=== PATIENT | female | born 1970 | race Caucasian/White ===

== ENCOUNTER 2016-11-19 06:14 | Inpatient (IN) | payer MEDICARE ==
--- NOTE | ~2016-11-19 | HP ---
Unit #: [id number] #: [id number] Patient: CRISTIANA ROBBINS [id number] [address] [address] [id number] I MR#: [id number] NAME: CRISTIANA ROBBINS ROOM: 239 Age: 45 Sex: F Admission Date: 11/19/2016 : 1970 Attending Physician: Edy Lester M.D. Referring Physician: Edy Lester M.D. 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 She failed extensive attempts at rehabilitation and medical management. She is no longer a surgical candidate. Plan is to trial spinal narcotics with a view toward possible pump placement. ALLERGIES Morphine, acetaminophen, Dilantin, ketorolac, Keppra and Cymbalta. PAST MEDICAL HISTORY Medical history is significant for chronic pain status post spine surgery, seizures, anxiety, hypertension. TREATMENT PLAN The patient has been placed in observation with possible transference to an admission following placement of an epidural catheter and the beginning of an infusion of Dilaudid via epidural catheter. Plan will be to assess the patient over the ensuing hours and days to determine whether or not the spinal narcotics are adequate treatment for her. Dictated by Cristina Ritter/evelin TD: 11/21/2016 09:19 JOB #: [id number] HISTORY AND PHYSICAL Page 1 of 1 X Edy Lester MD X HISTORY AND PHYSICAL
--- NOTE | ~2016-11-19 | OR ---
Unit #: [id number] #: [id number] Patient: CRISTIANA ROBBINS [id number] [address] [place], [place] [address] [id number] I MR#: [id number] NAME: CRISTIANA ROBBINS ROOM: 239 Date of Procedure: 11/19/2016 Admission Date: 11/19/2016 Surgeon: Edy Lester M.D. : 1970 Attending Physician: Edy Lester M.D. Referring Physician: Edy Lester M.D. OPERATIVE REPORT JOB NOTE: CC: PAIN [facility]ENTER PREOPERATIVE DIAGNOSES 1. Intractable pain due to failed back surgery syndrome. 2. Degenerative disk disease. 3. Radiculopathy. POSTOPERATIVE DIAGNOSES 1. Intractable pain due to failed back surgery syndrome. 2. Degenerative disk disease. 3. Radiculopathy. PROCEDURES PERFORMED Placement of epidural catheter for spinal pain pump trial with fluoroscopic guidance and intravenous sedation. DESCRIPTION OF PROCEDURE The patient was placed in the seated position. Standard monitors were applied. Sterile prep and drape of the lumbosacral area was performed. 2 mg of Versed were given for sedation and anxiolysis, which were adequate. Vital signs remained stable. The skin at the L3-L4 level was localized with 1% lidocaine. An 18-gauge K2 [employer] needle was then advanced via loss of resistance technique with fluoroscopic guidance in toward the epidural space. The patient did not complain of pain or paresthesia during needle advancement. After entering the epidural space via loss of resistance technique, catheter was placed without problem through the epidural space. Radiographic contrast was injected and was seen to spread anteriorly to the L3 vertebral body. The catheter and needle were removed. The needle was again advanced via loss of resistance technique. Catheter was threaded once we were in the epidural space. Contrast was injected to the catheter, which was shown to spread within the epidural space. The needle was removed. The catheter was securely fastened using 1/2-inch Steri-Strips and Mastisol. Sterile dressing was applied. The patient will be started on a fusion of preservative-free hydromorphone. Dictated by... Edy Lester M.D. LHP/modl TD: 11/19/2016 22:17 Unit #: [id number] #: [id number] Patient: CRISTIANA ROBBINS JOB #: [id number] OPERATIVE REPORT Page 1 of 1 X Edy Lester MD X PROCEDURE OPERATIVE NOTE
--- NOTE | ~2016-11-19 | DS ---
Unit #: [id number] #: [id number] Patient: CRISTIANA ROBBINS [id number] [address] [address] [id number] I MR#: [id number] NAME: CRISTIANA ROBBINS ROOM: 239 Age: 45 Sex: F Admission Date: 11/19/2016 : 1970 Discharge Date: 11/21/2016 Attending Physician: Edy Lester M.D. Referring Physician: Edy Lester M.D. Primary Care Physician: Dawna Primary Care Physician DISCHARGE SUMMARY HISTORY This is a 45-year-old female with intractable pain due to posttraumatic arthritis in pelvis and lower extremity, chronic back pain and prior neck surgery. This failed to settle with conservative measures. It was made to give the patient a trial of actual narcotics with a pain pump trial and after placing an epidural catheter. In the OR, the patient was started on an infusion of Dilaudid, which was titrated upwards towards a final dose of 1 mg/hour. With this dosage, the patient did achieve improvement in her pain that was not substantially better than she gets with oral medication management. She had no side effects whatsoever with this dosing of medication and had her pain maintained for two days without any breakthrough medications at all. Plan at this point is to send the patient home, resume her oral medication, and will discuss and follow whether or not we will continue in pursuit of pump for pain management. DISCHARGE DIAGNOSIS Intractable pain with posttraumatic arthritis, failed back surgery syndrome. Patient is status post trial of spinal narcotics. SECONDARY DIAGNOSES 1. Anxiety. 2. Depression. 3. Hypertension. 4. Seizures. Dictated by... Cristina Ritter/mari TD: 11/21/2016 08:51 JOB #: [id number] Unit #: [id number] #: [id number] Patient: CRISTIANA ROBBINS DISCHARGE SUMMARY Page 1 of 1 X Edy Lester MD X DISCHARGE SUMMARY
--- NOTE | ~2016-11-19 | EKG ---
PATIENT: CRISTIANA ROBBINS UNIT #: [id number] Ventricular Rate: 65 BPM Atrial Rate: 65 BPM P-R Interval: 130 ms QRS Duration: 86 ms Q-T Interval: 412 ms QTC Calculation(Bezet): 428 ms P [place]: 56 degrees Calculated R [place]: 45 degrees Calculated T [place]: 41 degrees Diagnosis Line: Normal sinus rhythm Diagnosis Line: Normal ECG Diagnosis Line: When compared with ECG of 08-NOV-2015 23:56, Diagnosis Line: Vent. rate has decreased BY 39 BPM Diagnosis Line: T wave inversion no longer evident in Inferior Diagnosis Line: leads Diagnosis Line: Confirmed by PAO BARRIOS MD ([id number]) on 11/20/2016 Diagnosis Line: 5:35:48 AM INTERPRETING MD: SOPHIE SILVER
[~2016-11-19 06:14] MED LIST: ACETAMINOPHEN650 M1 PO; ALBUTEROL SULF8.5 G1 INH; ATIVAN PO; ATIVAN0.5 MG PO; BACLOFEN10 MG PO; BACTRIM DS TABL1 TA1 PO; CERTAGEN PO; CIPRO PO; CLEOCIN HCL300 M1 PO; DAZIDOX20 MG PO; DIAZEPAM PO; DIFLUCAN PO; FAMOTIDINE PO; FLEXERIL10 MG PO; KEFLEX500 M1 PO; KLONOPIN1 MG PO; LAMICTAL ODT50 MG PO; LEXAPRO20 MG PO; LIDOCAINE VISCOU1 ML TOP; LOPRESSOR PO; MEDROL PO; METHADONE PO; METOPROLOL SUCC50 MG PO; MOBIC15 MG PO; MORPHINE IR PO; MOTRIN600 M1 PO; NEURONTIN800 MG PO; NO MEDICATIONS; OPANA ER15 MG PO; OXYCODONE HCL20 M1 PO; OXYCODONE HCL30 MG PO; OXYCODONE15 M1 PO; OXYCONTIN30 MG PO; PHENERGAN25 M1 PO; PHENOBARBITAL30 M1 PO; POTASSIUM CHLO20 ME1 PO; PREDNISONE PO; PRENATAL ONE T1 EACH PO; PRENATAL1 TA1 PO; PROTONIX PO; PROTONIX20 MG PO; PYRIDIUM PO; REMERON15 MG PO; ROBAXIN500 MG PO; TOPAMAX50 MG; TYLOX 5/500 CAP1 CAP PO; VIBRAMYCIN100 M1 PO; VICODIN 5/500 T1 TAB PO; VOLTAREN75 MG PO; XANAX1 MG PO; ZOFRAN PO; [UNRECOGNIZED DRUG - OTHER] PO
[2017-01-02] MEDS ORDERED: FLEXERIL10 MG PO (15:00)
[2017-01-02] MEDS ORDERED: XANAX1 MG PO (15:01)
[2017-01-02] MEDS ORDERED: METOPROLOL TAR100 MG PO (15:01)
[2017-01-02] MEDS ORDERED: GABAPENTIN800 MG PO (15:01)
[2017-01-02] MEDS ORDERED: TOPAMAX PO (15:02)
[2017-01-02] MEDS ORDERED: SUMATRIPTAN SUC50 M1 PO (15:02)
[2017-01-02] MEDS ORDERED: LEXAPRO PO (15:03)
[2017-01-02] MEDS ORDERED: OXYCODONE HCL20 M1 PO (15:03)
[2017-01-02] MEDS ORDERED: OXYCONTIN PO (15:03)
[2017-01-02] MEDS ORDERED: PATIENT'S PHARMACY (15:04)
== END 2016-11-21 09:53 | disposition home or self-care (01) | DRG 552 ==
LOC: CSUR 06:14 → CPACUOF 08:45 → C2A 11-20 18:39
PROVIDERS: Pain Medicine Pain Medicine
PROC: 3E0R3NZ Introduction of Analgesics, Hypnotics, Sedatives into Spinal Canal, Percutaneous Approach (ICD-10-PCS; 2016-11-19)
PROC: B01B1ZZ Fluoroscopy of Spinal Cord using Low Osmolar Contrast (ICD-10-PCS; 2016-11-19)
PROC: 00HU33Z Insertion of Infusion Device into Spinal Canal, Percutaneous Approach (ICD-10-PCS; principal; 2016-11-19 08:00)
DX: M96.1 Postlaminectomy syndrome, not elsewhere classified (principal); R56.9 Unspecified convulsions; I10 Essential (primary) hypertension; M51.16 Intervertebral disc disorders with radiculopathy, lumbar region; F41.9 Anxiety disorder, unspecified; M19.92 Post-traumatic osteoarthritis, unspecified site; F32.9 Major depressive disorder, single episode, unspecified
CPT/HCPCS: 76000; 84703; 93005; J0690; J1170; J2250

== ENCOUNTER 2016-12-24 17:05 | Emergency (ER) | payer MEDICARE ==
[2017-01-02] MEDS ORDERED: FLEXERIL10 MG PO (15:00)
[2017-01-02] MEDS ORDERED: GABAPENTIN800 MG PO (15:01)
[2017-01-02] MEDS ORDERED: XANAX1 MG PO (15:01)
[2017-01-02] MEDS ORDERED: METOPROLOL TAR100 MG PO (15:01)
[2017-01-02] MEDS ORDERED: SUMATRIPTAN SUC50 M1 PO (15:02)
[2017-01-02] MEDS ORDERED: TOPAMAX PO (15:02)
[2017-01-02] MEDS ORDERED: OXYCODONE HCL20 M1 PO (15:03)
[2017-01-02] MEDS ORDERED: OXYCONTIN PO (15:03)
[2017-01-02] MEDS ORDERED: LEXAPRO PO (15:03)
[2017-01-02] MEDS ORDERED: PATIENT'S PHARMACY (15:04)
== END 2016-12-24 17:55 | disposition left against medical advice (07) ==
LOC: CED 17:05
DX: Z53.21 Procedure and treatment not carried out due to patient leaving prior to being seen by health care provider (principal)
CPT/HCPCS: 99281

== ENCOUNTER 2016-12-25 14:01 | Emergency (ER) | payer MEDICARE ==
[2017-01-02] MEDS ORDERED: FLEXERIL10 MG PO (15:00)
[2017-01-02] MEDS ORDERED: METOPROLOL TAR100 MG PO (15:01)
[2017-01-02] MEDS ORDERED: GABAPENTIN800 MG PO (15:01)
[2017-01-02] MEDS ORDERED: XANAX1 MG PO (15:01)
[2017-01-02] MEDS ORDERED: SUMATRIPTAN SUC50 M1 PO (15:02)
[2017-01-02] MEDS ORDERED: TOPAMAX PO (15:02)
[2017-01-02] MEDS ORDERED: LEXAPRO PO (15:03)
[2017-01-02] MEDS ORDERED: OXYCONTIN PO (15:03)
[2017-01-02] MEDS ORDERED: OXYCODONE HCL20 M1 PO (15:03)
[2017-01-02] MEDS ORDERED: PATIENT'S PHARMACY (15:04)
== END 2016-12-25 14:37 | disposition left against medical advice (07) ==
LOC: CED 14:01
DX: Z53.21 Procedure and treatment not carried out due to patient leaving prior to being seen by health care provider (principal)
CPT/HCPCS: J0171